=== PATIENT | male | born 1965 | race Caucasian/White ===

== ENCOUNTER 2018-10-16 15:04 | Observation (INO) | payer OTHER ==
[~2018-10-16] VITALS: Ht 185.4 cm; Wt 103.4 kg
[~2018-10-16 15:04] MED LIST: ACET1TAB40 PO; ACET325T33 PO; BUPR-187 PO; CITA10TA10 PO; GUAI120S25 PO; LISI-313 PO; QUET50TA22 PO
[2018-10-16] MEDS ORDERED: NITROGLYCERIN 2% 1 GM OINT PKT TD STA (15:41)
[2018-10-16] MEDS ORDERED: ASPIRIN 325 MG TAB PO STA (15:41)
[2018-10-16] MEDS ORDERED: SOD CHLORIDE 0.9% 1,000 ML IV SCH (18:29)
[2018-10-16] MEDS ORDERED: ACETAMINOPHEN 325 MG TAB PO PRN ×2 (18:30→19:00)
[2018-10-16] MEDS ORDERED: ONDANSETRON 4 MG INJ IV PRN ×2 (18:30→19:00)
[2018-10-16] MEDS: SOD CHLORIDE 0.9% 1,000 ML IV SCH ×2 (18:38→22:29)
[2018-10-16] MEDS ORDERED: ASPIRIN (EC) 81 MG TAB PO ONE (19:00)
[2018-10-16] MEDS ORDERED: HYDROCODONE/APAP (5/325) TAB PO PRN (19:00)
[2018-10-16] MEDS ORDERED: BISACODYL (EC) 5 MG TAB PO PRN (19:00)
[2018-10-16] MEDS ORDERED: DOCUSATE SODIUM 100 MG CAP PO PRN (19:00)
[2018-10-16] MEDS ORDERED: NACL 0.9% 3 ML SYG IV SCH (19:00)
[2018-10-16] MEDS ORDERED: ZOLPIDEM 5 MG TAB PO PRN (19:00)
[2018-10-16] MEDS ORDERED: GLUCOSE GEL 15 GRAM TUBE PO PRN ×2 (19:30)
[2018-10-16] MEDS ORDERED: GLUCOSE GEL 15 GRAM TUBE BUCCAL PRN (19:30)
[2018-10-16] MEDS ORDERED: DEXTROSE 50% 50 ML SYRINGE IV PRN ×2 (19:30)
[2018-10-16] MEDS ORDERED: GLUCAGON 1 MG INJ IM PRN (19:30)
[2018-10-16] MEDS: LISINOPRIL 5 MG TAB PO SCH (20:09)
[2018-10-16] MEDS ORDERED: GUAIFENESIN/DM 5ML CUP PO PRN (20:30)
[2018-10-16] MEDS ORDERED: INSULIN ASPART [NOVOLOG] 3 ML PEN SC SCH (21:00)
[2018-10-16] MEDS ORDERED: NON-FORMULARY/PATIENT OWN MED (Quetiapine Fumarate* 50 MG) PO SCH (21:00)
[2018-10-16] MEDS: morphine 2 MG INJ IV PRN (21:12)
[2018-10-16 21:47] VITALS: BP 127/77; PULSE 76; RESP 20
[2018-10-16 21:50] VITALS: Ht 185.4 cm; Wt 103.4 kg
[2018-10-16] MEDS: FAMOTIDINE 20 MG TAB PO SCH (22:28)
[2018-10-16] MEDS ORDERED: QUETIAPINE 25 MG TAB PO SCH (22:30)
[2018-10-16] MEDS: INSULIN ASPART [NOVOLOG] 3 ML PEN SC SCH (22:31)
[2018-10-17] VITALS: BP 133/81; PULSE 72; RESP 19
[2018-10-17] MEDS: morphine 2 MG INJ IV PRN ×2 (01:41→11:56)
[2018-10-17] MEDS ORDERED: ACCU-CHEK XX SCH (02:00)
[2018-10-17 03:58] VITALS: BP 142/82; PULSE 63; RESP 20
[2018-10-17 07:30] VITALS: BP 135/78; PULSE 95; RESP 18
[2018-10-17] MEDS: INSULIN ASPART [NOVOLOG] 3 ML PEN SC SCH ×2 (07:55→11:50)
[2018-10-17] MEDS: FAMOTIDINE 20 MG TAB PO SCH (08:39)
[2018-10-17] MEDS: LISINOPRIL 5 MG TAB PO SCH (08:39)
[2018-10-17] MEDS ORDERED: BUPROPION (SR) 100 MG TAB PO SCH (09:00)
[2018-10-17] MEDS ORDERED: ENOXAPARIN 40 MG/0.4 ML SYG SC SCH (09:00)
[2018-10-17 11:36] VITALS: BP 159/90; PULSE 86; RESP 18
[2018-10-17 15:48] VITALS: BP 141/80; PULSE 79; RESP 17
== END 2018-10-17 17:00 | disposition home or self-care (01) ==
LOC: E/R 15:04 → TEL 18:30
PROVIDERS: ADMIT Internal Medicine; ATTEND Internal Medicine
DX: R07.89 Other chest pain (principal); I10 Essential (primary) hypertension; E78.00 Pure hypercholesterolemia, unspecified; F17.200 Nicotine dependence, unspecified, uncomplicated; R73.03 Prediabetes; E78.5 Hyperlipidemia, unspecified
CPT/HCPCS: 36415; 71045; 80053; 80061; 80307; 81003; 82962; 83036; 83690; 83735; 84100; 84443; 84484; 85025; 85610; 93005; 99285; G0378; J1650; J1815; J2270; J7030